=== PATIENT | male | born 1945 | race Caucasian/White ===

== ENCOUNTER 2023-04-03 11:55 | Day surgery (SDC) | payer MEDICARE, OTHER, SELFPAY ==
[2023-04-01 12:51] VITALS: BMI 21.1
[2023-04-01 13:24] VITALS: BMI 22.0
--- NOTE | 2023-04-02 10:31 | P.CONAN_ITS ---
Documented by User: Mercy Nazario NP 04/02/23 10:31 HPI - Anesthesia Eval Consult details Narrative: 77yo M for Colonoscopy [facility] Past Medical History Medical History Blind left eye Slow to wake up after anesthesia Irregular heart beat History of prostate cancer History of diverticulosis Surgical History Surgical History History of total right knee replacement Hx of cholecystectomy Hx of detached retina repair Hx of bilateral cataract extraction Hx of appendectomy Hx of prostatectomy Hx of colonoscopy Social History Social History (Updated 04/01/23 @ 13:23 by Matilda De La Cruz RN) Household Members: Spouse Housing: House Are you a primary patient centered care specialist to a significant other at home: No Do you presently have visiting nurse or other home services: No Patient Tobacco Use Status: Never used Tobacco Use of substances other than those prescribed or required for medical reasons: No Have you been hit, kicked, punched, or otherwise hurt by someone within the past year? If so, by whom?: No Are you DNR?: No Advance Directives: No Advance Directives Information Provided: Yes Advance Directives on File: No Poor oral hygiene: No Meds Allergies Allergy/AdvReac Type Severity Reaction Status Date / Time azithromycin AdvReac Severe Nausea and Verified 04/03/23 13:03 [From Zithromax Z-Adrian] Vomiting Home Medications Medication Instructions Recorded Confirmed Last Taken Type acetaminophen 325 mg tablet 325 mg PO QID PRN Pain 04/01/23 04/01/23 Unknown History Exam Height,Weight and Vital Signs: Height 5 ft 9 in Weight 67.585 kg Assessment and Plan Assessment Anesthesia Assessment: Chart Reviewed Documented by User: Rod Christopher MD 04/03/23 13:12 [facility] Past Medical History Medical History Blind left eye Slow to wake up after anesthesia Irregular heart beat History of prostate cancer History of diverticulosis Family History Family history of problems with anesthesia: No Surgical History Surgical History History of total right knee replacement Hx of cholecystectomy Hx of detached retina repair Hx of bilateral cataract extraction Hx of appendectomy Hx of prostatectomy Hx of colonoscopy History of Problems with Anesthesia: No Social History Social History (Updated 04/01/23 @ 13:23 by Matilda De La Cruz RN) Household Members: Spouse Housing: House Are you a primary patient centered care specialist to a significant other at home: No Do you presently have visiting nurse or other home services: No Patient Tobacco Use Status: Never used Tobacco Use of substances other than those prescribed or required for medical reasons: No Have you been hit, kicked, punched, or otherwise hurt by someone within the past year? If so, by whom?: No Are you DNR?: No Advance Directives: No Advance Directives Information Provided: Yes Advance Directives on File: No Poor oral hygiene: No Meds Allergies Allergy/AdvReac Type Severity Reaction Status Date / Time azithromycin AdvReac Severe Nausea and Verified 04/03/23 13:03 [From Zithromax Z-Adrian] Vomiting Home Medications Medication Instructions Recorded Confirmed Last Taken Type acetaminophen 325 mg tablet 325 mg PO QID PRN Pain 04/01/23 04/01/23 Unknown History Exam Airway Mallampati Class: II TM Dist: >3cm Neck ROM: Full Assessment and Plan Assessment Anesthesia Assessment: Anesthesia Plan Discussed Final Anesthetic Review Family History of Problems with Anesthesia: No History of Problems with Anesthesia: No NPO: Yes ASA Class: I Final Preanesthetic Review: No Changes in Pt Med Stat, Meds/Allgs Chart Reviewed, Consent Obtained/Reviewed and Anes Risks/Benef Reviewed Patient Risk: Low Procedure Risk: Low Anesthetic Plan Anesthetic Plan: TIVA Disposition: Standard PACU
[2023-04-03 13:01] VITALS: BP 109/88; PULSE 100; RESP 16; TEMP 36.2; O2SAT 98
[2023-04-03] MEDS: Lactated Ringers 1,000 ML 100 ML IVCONT (13:01)
--- NOTE | 2023-04-03 14:06 | MHC.SHP ---
Pre-Procedural Eval Section A - 24 Hr Update-Section A only Date of Service: 04/03/23 The patient is an INPATIENT: No Section B - Complete if H&P > 30 days Chief Complaint: screening Details of Present Illness: see H&P no changes Relevant Family History (Specify if Yes): No Relevant Social History: None Present Medications: see Short Stay Collaborative assessment Medical History: No relevant PMH Allergies: Allergies Allergy/AdvReac Type Severity Reaction Status Date / Time azithromycin AdvReac Severe Nausea and Verified 04/03/23 13:03 [From Zithromax Z-Adrian] Vomiting Review of Systems Sugical H&P ROS: Negative: Constitution, Cardiovascular, Respiratory, Neurological, Psychiatric, Hem-Onc, Allergic/Immunologic, Gastrointestinal, Genitourinary, Musculoskeletal, Integumentary, Endocrine and Eyes/Ears/Nose/Throat Exam Surgical H&P Exam: Normal: HEENT, Normal: Heart, Normal: Lungs, Normal: Extremities, Normal: Abdomen, Normal: Skin and Normal: Neurological Plan Diagnosis/Plan: Unchanged I have reviewed the history and physical and performed a pertinent physical examination on my patient. No changes have occurred unless specified. Time Spent With Patient Time: Total time managing care of this patient today ____ minutes.
[2023-04-03 14:45] VITALS: BP 100/57; PULSE 78; RESP 16; TEMP 36.4; O2SAT 98
[2023-04-03 15:00] VITALS: BP 107/80; PULSE 76; RESP 18; TEMP 36.6; O2SAT 97
--- NOTE | 2023-04-03 15:42 | OP_ITS ---
DATE OF SERVICE: 04/03/2023 SURGEON: Lucio Mnotiel MD INDICATIONS: Colon cancer screening. PREOPERATIVE DIAGNOSIS: POSTOPERATIVE DIAGNOSIS: PROCEDURE PERFORMED: Colonoscopy to the terminal ileum with biopsy. ESTIMATED BLOOD LOSS: COMPLICATIONS: ANESTHESIA: Monitored anesthesia care. ASSISTANTS: SPECIMENS: DESCRIPTION OF PROCEDURE: A history and physical performed. The risks and benefits of the procedure were explained to the patient. Informed consent was obtained. The patient was placed in the left lateral decubitus position. A digital rectal exam was performed and was found to be normal. The Olympus pediatric videocolonoscope was introduced into the rectum and advanced to the cecum. The cecum was identified by transillumination, palpation, and identification of ileocecal valve. Examination was performed. The scope was removed. He tolerated the procedure well and was taken to recovery room in stable condition. FINDINGS: The terminal ileum was examined and appeared normal. The visualized colonic mucosa was normal. The quality of the prep was good. Two polyps were identified and removed with biopsy forceps. Both were less than 5 mm, 1 was located in the cecum, 1 was located in the rectum. Retroflexed examination showed internal hemorrhoids. IMPRESSION: Colon polyps. RECOMMENDATION: Follow up the biopsy results. MD JUANJO Wallace/JUAN JOSÉ / [id number]
== END 2023-04-03 15:19 | disposition home or self-care (01) ==
PROVIDERS: PCP Internal Medicine; Visit Provider Internal Medicine Gastroenterology
PROC: 0DJD8ZZ Inspection of Lower Intestinal Tract, Via Natural or Artificial Opening Endoscopic (ICD-10-PCS; CPT 45378; principal; 2023-04-03 14:10)
DX: Z12.11 Encounter for screening for malignant neoplasm of colon (principal); D12.0 Benign neoplasm of cecum; K62.1 Rectal polyp; K64.8 Other hemorrhoids
CPT/HCPCS: 45380; 88305; J2704